=== PATIENT | male | born 1945 | race Caucasian/White ===

== ENCOUNTER → 2017-02-05 | Outpatient (CLI) | payer MEDICARE, OTHER ==
[~2017-02-05] MED LIST: OMNIPAQUE 350 MG/ML, 100ML BOTTLE ONE
== END | disposition home or self-care (01) ==
LOC: CFH 12:58
PROVIDERS: ATTEND Internal Medicine
DX: I63.9 Cerebral infarction, unspecified (principal); I37.1 Nonrheumatic pulmonary valve insufficiency; G20 Parkinson's disease; Q67.6 Pectus excavatum; Z85.828 Personal history of other malignant neoplasm of skin
CPT/HCPCS: 70498; 82565; 93306; Q9967